=== PATIENT | female | born 1970 | race Two or more races ===

== ENCOUNTER 2016-11-21 06:11 | Day surgery (SDC) | payer MEDICAID ==
[~2016-11-21] VITALS: Ht 154.9 cm; Wt 93.8 kg
--- NOTE | ~2016-11-21 | OR ---
PATIENT'S NAME: GENEVIEVE ROLLE [facility] AGE: 46 Y [address] ROOM: [address] [address] LOCATION: [facility] [place] ADMIT DATE: 11/21/2016 OR/Procedure Report DISCHARGE DATE: FAMILY PHYSICIAN: Yulia Lott APRN ATTENDING PHYSICIAN: Julio Patterson SURGEON: Julio Patterson MD SYSTEMS ARCHITECT: Harleen Callejas PA-C. DATE OF PROCEDURE: 11/21/2016 PREOPERATIVE DIAGNOSIS: Left papillary thyroid carcinoma. POSTOPERATIVE DIAGNOSIS: Left papillary thyroid carcinoma. PROCEDURE: Total thyroidectomy. FINDINGS: Significant desmoplastic reaction surrounding the left gland. The recurrent laryngeal nerve was involved with tumor. When the nerve was stimulated proximal to the area of involvement, there was no stimulation. Distal to this near the cricoid cartilage when stimulated, there was appropriate response. With this involvement being present, the nerve was ultimately sacrificed. ESTIMATED BLOOD LOSS: Less than 20 mL. COMPLICATIONS: None. INDICATIONS: The patient is a 46-year-old female who had presented with thyroid nodules bilaterally. Her left lobe revealed papillary thyroid carcinoma. We discussed options with the patient and ultimately elected to proceed with a total thyroidectomy. Risks, benefits, and alternatives have been explained through an spanish medical interpreter. DESCRIPTION OF PROCEDURE: The patient was taken to the operating room. She was supine. She was given IV sedation. Her neck was cleansed with ChloraPrep and sterilely draped. A collar incision was then created, carried down through the subcutaneous tissues and through the platysma using electrocautery. Subplatysmal flaps were created. The strap muscles were then divided in the midline. We attended to the left thyroid lobe first, retracting the strap muscles laterally staying on the thyroid capsule during dissection. Very hard nodule was present posteriorly. We continued dissection, this was very difficult as there was significant desmoplastic reaction. The tumor did not appear to invade into the muscles. Middle thyroid vein was divided with the Harmonic scalpel. We then turned our attention to the upper pole, which was able to be mobilized carefully, staying near the thyroid capsule to avoid injury to the superior laryngeal nerve. As PATIENT'S NAME: GENEVIEVE ROLLE [facility] AGE: 46 Y [address] ROOM: [address] [address] LOCATION: [facility] [place] ADMIT DATE: 11/21/2016 OR/Procedure Report DISCHARGE DATE: FAMILY PHYSICIAN: Yulia Lott APRN ATTENDING PHYSICIAN: Julio Patterson the worst portion of the desmoplastic reaction was medially, we turned our attention to the inferior pole and we were able to mobilize the inferior pole. It was very difficult to identify the recurrent laryngeal nerve. We could identify this inferior to the inferior pole. We were able to trace this back, extending right into what appeared to be the thyroid nodule, but we could not obtain an adequate plane to further dissect this nerve from tumor. With this, we turned our attention to the right lobe as we would plan for a total thyroidectomy. There were nodules in the right lobe as well, these were felt to be benign. The strap muscles were retracted laterally. The middle thyroid vein was then divided with the Harmonic scalpel. We turned our attention to the superior pole and inferior pole. We were able to identify the superior and inferior polar vessels. These were isolated. The thyroid retracted medially. We were able to find the recurrent laryngeal nerve on the right. The superior and inferior polar vessels were then divided with the Harmonic scalpel. We were able to slowly mobilize the right lobe from the recurrent laryngeal nerve to the ligament of Dominguez. This was divided using electrocautery. The thyroid was then mobilized off the trachea using electrocautery extending past the isthmus and over to the left lobe. This allowed us to dissect on the trachea near the left lobe. Once we dissected the left lobe laterally off the trachea, it allowed us to find the recurrent laryngeal nerve. We could see the recurrent laryngeal nerve in its proximal aspect where we had previously identified it, but this allowed us to see the nerve extending up to and what appeared to be involved in the tumor itself. Using the nerve stimulator which we also had used on the right, the right recurrent laryngeal nerve when identified, the nerve stimulator was used on it. On the left, proximally in the nerve where we initially identified this, there was no signal within the nerve, it did not stimulate as expected. We continued to follow the nerve, which again was very thickened within this hard nodule of the thyroid. We were able to mobilize the left thyroid gland enough in order to identify this proximally near the cricoid cartilage. At this level, when the nerve was stimulated, it did stimulate adequately. At this point in time, we could see the proximal and distal ends of this nerve. With extremely abnormal nerve at the area of tumor, we attempted to dissect this from the tumor, but the tumor appeared to be involved in this. At this point in time, I did get intraoperative consultation with ENT Surgery as a second opinion regarding management of this. Ultimately, it was felt that sacrificing this nerve was the only possibility for complete resection and the nerve was sacrificed. Once this was accomplished, we were able to complete the removal of the rest of the thyroid lobe. The area, which appeared to be nerve invasion, was marked for pathologic evaluation. We also had obtained frozen sections on the proximal and distal ends of the cut nerve for evaluation to assure no extensive perineural invasion, which was not present. The thyroid was passed off the table as specimen. The operative field was inspected. We had identified a single parathyroid on each, the left and right sides, and these were preserved. The operative field again was inspected, it PATIENT'S NAME: GENEVIEVE ROLLE [facility] AGE: 46 Y [address] ROOM: [place] [address] LOCATION: [facility] [place] ADMIT DATE: 11/21/2016 OR/Procedure Report DISCHARGE DATE: FAMILY PHYSICIAN: Yulia Lott APRN ATTENDING PHYSICIAN: Julio Patterson appeared hemostatic. Strap muscles were reapproximated with 3-0 silk suture, closure of the platysma with 3-0 Vicryl suture, and skin closed with 4-0 Monocryl suture. The patient was allowed to slowly wake up. We were able to examine the cords using a glide scope. There appeared to be adequate movement of the right vocal cord without any noticeable movement in the left. The patient was then able to be extubated. Sterile dressings had been placed and she tolerated this well. MD WILDA GARCIA/alfredo /[id number] d: 11/22/16 0047 t: 12/05/16 0854, OPERATIVE SUMMARY
[~2016-11-21 06:11] MED LIST: ALDOMET250 MG PO; BYSTOLIC10 MG PO; BYSTOLIC5 MG PO; GLUCOPHAGE1000 MG PO; GLUCOPHAGE500 MG PO; HYDRODIURIL25 MG PO; JANUMET 50-1,01 EACH PO; LANTUS (IN100 UNIT/M SUB-Q; MOTRIN800 MG PO; NORCO 5-325 MG1 TAB PO; PERCOCET 5-3251 EACH PO; PRENATAL 1+1)(P1 TAB PO; PROCARDIA PO; PROCARDIA XL30 MG; PROCARDIA XL30 MG PO; TAB-A-VITE1 EACH PO; THERAFLU COLD PO; TRICOR145 MG PO; TUMS200 MG PO
[2016-11-21 07:31] LABS: ALBUMIN 3.3 gm/dL (3.5-5.0); ANION GAP 12.6 (10.0-19.0); CALCIUM 8.6 mg/dL (8.5-10.5); CREATININE 0.8 mg/dL (0.5-1.1); POTASSIUM 3.6 mMol/L (3.7-5.1); TOTAL BILIRUBIN 0.2 mg/dL (0.0-1.5); TOTAL PROTEIN 7.3 g/dL (6.0-8.4)
[2016-11-22] MEDS ORDERED: NORCO 5-325 TA1 EACH PO (08:34)
[2016-11-22] MEDS ORDERED: LEVOTHROID (S150 MCG PO (08:34)
[2016-11-22] MEDS ORDERED: MOTRIN600 MG PO (08:35)
== END 2016-11-22 11:00 | disposition disaster alternative care site (69) ==
LOC: UNDOADMIN 06:11 → GMSU 06:11 → GSDC 06:11 → GMSU 06:11 → GSDC 11-22 11:00 → GMSU 11-22 11:00
PROVIDERS: Nurse Anesthetist, Certified Registered
PROC: 0GTK0ZZ Resection of Thyroid Gland, Open Approach (ICD-10-PCS; principal; 2016-11-21)
DX: C73 Malignant neoplasm of thyroid gland (principal); I10 Essential (primary) hypertension; E78.5 Hyperlipidemia, unspecified; E11.9 Type 2 diabetes mellitus without complications; E66.9 Obesity, unspecified; Z79.899 Other long term (current) drug therapy; Z98.890 Other specified postprocedural states
CPT/HCPCS: J0690; J1100; J2001; J2250; J2405; J2550; J3010; J7030

== ENCOUNTER → 2016-12-27 | Outpatient (CLI) | payer MEDICAID ==
[~2016-12-27] MED LIST changes: +LEVOTHROID (S150 MCG PO; +MOTRIN600 MG PO; +NORCO 5-325 TA1 EACH PO
== END | disposition disaster alternative care site (69) ==
LOC: GRAD 11:30
DX: R49.0 Dysphonia (principal); J38.01 Paralysis of vocal cords and larynx, unilateral; Y84.4 Aspiration of fluid as the cause of abnormal reaction of the patient, or of later complication, without mention of misadventure at the time of the procedure